=== PATIENT | female | born 1970 | race Hispanic/Latino ===

== ENCOUNTER 2017-05-17 06:13 | Day surgery (SDC) | payer OTHER ==
[2017-05-10 13:36] VITALS: BMI 33.5
[2017-05-17] MEDS ORDERED: Lidocaine 2% Inj (20ml) ONE (06:34)
[2017-05-17 07:15] LABS: BASO # 0.06 K/mm3 (0.0-2.0); BASO % 0.5 % (0.0-3.0); EOS # 0.3 (0.0-0.7); EOS % 2.9 % (1.5-5.0); GRAN # 6.71 (1.4-6.5); GRAN % 59.3 % (50.0-68.0); HEMATOCRIT 33.3 % (36.0-48.0); LYMPH # 3.1 (1.2-3.4); LYMPH % 27.7 % (22.0-35.0); MEAN CELL VOLUME 79.1 fl (80.0-105.0); MEAN CORPUSCULAR HEMOGLOBIN 24.7 pg (25.0-35.0); MEAN CORPUSCULAR HGB CONC 31.2 g/dl (31.0-37.0); MONO # 1.1 (0.1-0.6); MONO % 9.6 % (1.0-6.0); WHITE BLOOD COUNT 11.3 10^3/ul (4.5-11.0)
[2017-05-17 07:29] LABS: BLOOD UREA NITROGEN 12 mg/dL (7-21); CALCIUM 8.8 mg/dL (8.4-10.5); CARBON DIOXIDE 29 mmol/L (21-33); CHLORIDE 105 mmol/L (98-107); CHOLESTEROL 128 mg/dL (130-200); GFR AFRICAN-AMERICAN > 60; GLUCOSE,RANDOM 100 mg/dL (70-110); INR 1.14 (0.93-1.08); PARTIAL THROMBOPLASTIN TIME 26.3 Seconds (25.1-36.5); POTASSIUM 3.8 mmol/L (3.6-5.0); SODIUM 140 mmol/L (132-148)
[2017-05-17] MEDS ORDERED: Sodium Chloride 0.9% 1,000 ML IV SCH (08:30)
--- NOTE | 2017-05-17 08:40 | HP ---
REASON FOR ADMISSION: For loop recorder implantation for SVT. BRIEF CLINICAL HISTORY: This is a 46-year-old female with past medical history significant for obesity, migraine, increased cholesterol, complaining of palpitation off and on for two to three months. The patient did a Holter that is negative, but the patient said during the Holter, he did not feel it, but after the Holter the patient feels every time heart rate fast. The patient had a negative cardiac workup, a stress test, and an echo. PAST MEDICAL HISTORY: Significant for migraine, obesity, and hyperlipidemia. SOCIAL HISTORY: Denies any smoking. Denies any history of alcohol abuse. RECENT CARDIAC WORKUP: As follows: The patient's Holter Monitor that showed heart rate minimum at 58, maximum 128, average was 78. She says the heart rate at 121 at midnight when the patient was sleeping. Claimed that the patient woke up from the sleep with palpitation. The patient had a stress on 02/17/2016, which was essentially negative. The patient had echocardiography that showed ejection fraction of 65%, trace MR, trace TR, dated 02/17/2016. REVIEW OF SYSTEMS: As per HPI. PHYSICAL EXAMINATION: As follows, VITAL SIGNS: Height of the patient is 5 feet 7 inches, weight of the patient is 183 pounds, body mass index is 28 kg/m2. Rest of the examination as follows, heart rate 60, blood pressure 100/70. HEENT: PERRLA, intact. NECK: Supple. No carotid bruit or thyromegaly. CHEST: Clear to auscultation. HEART: S1 and S2 regular. ABDOMEN: Soft. EXTREMITIES: Clubbing and cyanosis negative. IMPRESSION; Supraventricular tachycardia, rule out obstructive sleep apnea, obesity, migraine, palpitation and weird feeling at the night, the patient woke up couple of times and feels that heart rate slows down and then starts beating fast, rule out sick sinus syndrome. RECOMMENDATION: We will put loop recorder for further recommendation. After the loop recorder., we will follow with you. If loop recorder is negative, we will proceed for obstructive sleep apnea study. Thank you Dr. Riley for providing us the opportunity in taking care of the patient, Deniz Elias MD cc: Dr. Riley ANNETTE
[2017-05-17 08:47] VITALS: RESP 18
[2017-05-17 08:48] VITALS: PULSE 68; TEMP 98; O2SAT 100
--- NOTE | 2017-05-17 09:51 | CARD ---
APPROVED REPORT EKG Measurement Heart [id number] <Conclusion> Normal sinus rhythm Normal ECG
[2017-05-17 10:02] VITALS: BP 126/71
--- NOTE | 2017-05-17 14:36 | CARDCATH ---
PROCEDURE DATE: 05/17/2017 PROCEDURES: Implantation of loop recorder (LINQ from [employer]). INDICATION FOR PROCEDURE: SVT, arrhythmia, palpitation, waking up from the sleep with palpitation. Holter was negative. OPERATIVE DOCTOR: Deniz Elias MD VASC TECH: aviation maintenance technicianLucia SCHEDULING: Elective REFERRING PHYSICIAN: DR. Katy Lora BRIEF CLINICAL HISTORY: This is a 46-year-old female with past medical history significant for migraine, complaining of palpitation and used to wake up from palpitation, feels heart stops beating and then start very fast. The patient has Holter monitor done that shows heart rate at 12 midnight was 130, but otherwise sinus tachycardia, otherwise no other arrhythmia noted, but the patient complains of that it happens once a week and while she was getting Holter, it did not happen,so the patient is scheduled for loop recorder implantation. PROCEDURE: The patient was brought to the oil laboratory analyst, draped in a sterile standard fashion, left side of the chest 1.5 cm away from the midline in the 4th intercostal space. 10 mL of lidocaine was given and with #11 Bard-Sumit knife, a small incision was made and pocket was created for implantation of loop recorder. Then, a loop recorder from [employer] LINQ was injected and the puncture site was closed with Dermabond. The patient tolerated the procedure well, returned to floor in stable condition. PLAN: Educate the patient for loop recorder monitoring, and the patient will be discharged home. Thank you Dr. Lora for providing us the opportunity in taking care of the patient, Bianca Shelton. Deniz Elias MD cc: Dr. Lora. MTDNancy
== END 2017-05-17 10:15 | disposition home or self-care (01) ==
LOC: SDSVAS 06:13
PROVIDERS: ATTEND Internal Medicine Cardiovascular Disease
DX: I47.1 Supraventricular tachycardia (principal); G43.909 Migraine, unspecified, not intractable, without status migrainosus; R00.2 Palpitations; E78.5 Hyperlipidemia, unspecified; E66.9 Obesity, unspecified; Z68.33 Body mass index [BMI] 33.0-33.9, adult
CPT/HCPCS: 33282; 36415; 80048; 80061; 84703; 85025; 85610; 85730; 86850; 86900; 93005; C1764; J1644; J7040